=== PATIENT | male | born 1990 | race Caucasian/White ===

== ENCOUNTER 2021-09-04 11:24 | Emergency (ER) | payer OTHER ==
[~2021-09-04] VITALS: Ht 193 cm; Wt 99.8 kg
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
[2021-09-04] MEDS ORDERED: NOHOMEMEDICATIONS (11:36)
[2021-09-04] MEDS ORDERED: NORCO 10-325 T1 EACH PO (14:09)
[2021-09-04 14:21] VITALS: BP 121/75
== END 2021-09-04 14:21 | disposition home or self-care (01) ==
LOC: ER 11:24
DX: S82.145A Nondisplaced bicondylar fracture of left tibia, initial encounter for closed fracture (principal); F41.9 Anxiety disorder, unspecified; Z88.0 Allergy status to penicillin; Z88.1 Allergy status to other antibiotic agents; Y04.2XXA Assault by strike against or bumped into by another person, initial encounter; Y93.89 Activity, other specified; Y92.89 Other specified places as the place of occurrence of the external cause; Y99.8 Other external cause status